=== PATIENT | male | born 1980 | race Caucasian/White ===

== ENCOUNTER 2018-03-08 07:08 | Emergency (ER) | payer OTHER ==
[2018-03-08 07:40] LABS: #Basophils 0.1 thou/uL (0.0-0.2); #Lymphocytes 0.6 thou/uL (1.20-3.40); #Monocytes 0.5 thou/uL (0.11-0.59); #Neutrophils 8.8 thou/uL (1.40-6.50); %Basophils 1.3 % (0.0-1.0); %Eosinophils 0.2 % (0.0-10.0); %Lymphocytes 6.3 % (21.0-51.0); %Monocytes 4.9 % (0.0-10.0); %Neutrophils 87.3 % (42.0-75.0); Hemoglobin 13.3 g/dL (14.0-18.0); Mean Corpuscular HGB CONC 36.6 g/dL (32.0-36.0); Mean Corpuscular Hemoglobin 27.9 pg (27.0-31.0); Mean Corpuscular Volume 76.3 fL (78.0-98.0); Mean Platelet Volume 8.6 fL (7.4-10.4); Platelet Count 173 thou/uL (130-400); RBC Distribution Width 11.4 % (11.5-14.5); Red Blood Cell (RBC) Count 4.77 mill/uL (4.70-6.10); White Blood Cell (WBC) Count 10.1 thou/uL (4.8-10.8)
[2018-03-08] MEDS ORDERED: Ketorolac Tromethamine 30 MG/ML VIAL ONE (07:48)
[2018-03-08 07:54] LABS: ALT (SGPT) 41 U/L (8-55); AST (SGOT) 26 U/L (5-34); Albumin 4.2 g/dL (3.5-5.0); Alkaline Phosphatase 66 U/L (40-150); Anion Gap 13 mmol/L (10-20); BUN (Urea Nitrogen) 13 mg/dL (8.9-20.6); Bilirubin, Total 0.7 mg/dL (0.2-1.2); Calc. Creatinine Clearance 0 mL/min (70-130); Calcium 9.3 mg/dL (7.8-10.44); Carbon Dioxide 24 mmol/L (22-29); Chloride 103 mmol/L (98-107); Estimated GFR-MDRD 74; Globulin 3.2 g/dL (2.4-3.5); Glucose 110 mg/dL (70-105); Lipase 35 U/L (8-78); Potassium 3.9 mmol/L (3.5-5.1); Protein, Total 7.4 g/dL (6.0-8.3); Sodium 136 mmol/L (136-145)
--- NOTE | 2018-03-08 08:56 | CT ---
CT ABDOMEN AND PELVIS WITH IV CONTRAST: Date: 03/08/18 HISTORY: Right lower quadrant abdominal pain. FINDINGS: There is a subcentimeter, too small to characterize, hypodense lesion seen in the inferior pole of le ft kidney. Kidneys otherwise have a normal CT appearance bilaterally. The lung bases, liver, spleen, pancreas, bilateral adrenal glands, and urinary bladder demonstrate a normal CT appearance. There is a retrocecal appendix without CT evidence of appendicitis. Abdominal aorta is normal in caliber. There is no free fluid, fluid collection, or lymphadenopathy seen in the abdomen or pelvis. IMPRESSION: 1. No CT evidence of appendicitis. 2. Subcentimeter, too small to characterize, hypodense lesion in the left kidney. POS: [facility]
== END 2018-03-08 09:00 | disposition home or self-care (01) ==
LOC: BURERS 07:08
DX: B34.9 Viral infection, unspecified (principal); I10 Essential (primary) hypertension
CPT/HCPCS: 74177; 80053; 83605; 83690; 85025; 87804; 96361; 96374; J1885